=== PATIENT | female | born 1985 | race Caucasian/White ===

== ENCOUNTER → 2016-09-15 | Outpatient (CLI) | payer OTHER, MEDICAID ==
[~2016-09-15] MED LIST: LORTAB 5/500 501 TAB PO; TYLENOL W/CODEI1 TAB PO
[2016-09-15 11:44] LABS: HEMOGLOBIN 13.9 g/dL (12.2-16.2); LYMPH # 2.1 K/mm3 (0.7-4.5)
[2016-09-15 12:50] LABS: ABO BLOOD TYPE A; RH BLOOD TYPE POSITIVE
[2016-09-15 16:12] LABS: AMPHETAMINES/METAMPHETAMINES NEGATIVE ng/mL (<1000)
[2016-09-16 08:43] LABS: HIV Screen 4th Generation wRfx Non Reactive (Non Reactive); Rapid Plasma Reagin, Quant Non Reactive (NonRea<1:1)
[2016-09-16 09:38] LABS: HBsAg Screen Negative (Negative)
== END ==
LOC: LAB 11:07
PROVIDERS: Obstetrics & Gynecology
DX: Z36 Encounter for antenatal screening of mother (principal); Z04.8 Encounter for examination and observation for other specified reasons; Z34.80 Encounter for supervision of other normal pregnancy, unspecified trimester
CPT/HCPCS: G0432

== ENCOUNTER → 2016-12-31 | Outpatient (CLI) | payer OTHER, MEDICAID ==
[~2016-12-31] MED LIST changes: +METFORMIN HCL1000 MG PO
[2016-12-31 08:01] LABS: FASTING URINE GLUCOSE NEGATIVE
[2016-12-31 09:13] LABS: 1 HR URINE GLUCOSE 3+ mg/ml
[2016-12-31 10:14] LABS: 2 HR URINE GLUCOSE 2+ mg/ml
[2016-12-31 11:13] LABS: 3 HR URINE GLUCOSE 2+ mg/ml
== END ==
LOC: LAB 07:51
PROVIDERS: Obstetrics & Gynecology
DX: Z13.1 Encounter for screening for diabetes mellitus (principal)

== ENCOUNTER → 2017-02-17 | Outpatient (CLI) | payer OTHER, MEDICAID ==
[2017-02-17 11:42] LABS: BUN 6 mg/dL (7-18)
[2017-02-17 11:48] LABS: GFR (ESTIMATED) 187 ML/MIN (59-)
== END ==
LOC: LAB 10:44
PROVIDERS: Internal Medicine Adolescent Medicine
DX: E28.2 Polycystic ovarian syndrome (principal)

== ENCOUNTER 2017-03-10 09:51 | Outpatient (CLI) | payer OTHER, MEDICAID ==
[~2017-03-10] VITALS: Ht 152.4 cm; Wt 93.0 kg
[2017-03-10 10:05] VITALS: BP 125/76
[2017-03-10] MEDS ORDERED: LABETALOL 100M100 MG PO (10:08)
[2017-03-10] MEDS ORDERED: ZYRTEC10 M2 PO (10:09)
[2017-03-10 10:52] LABS: LYMPH # 1.8 K/mm3 (0.7-4.5); LYMPH % 17.1 % (10-50.0)
[2017-03-10 11:28] LABS: ABO BLOOD TYPE A; RH BLOOD TYPE POSITIVE
== END 2017-03-10 12:45 | disposition home or self-care (01) ==
LOC: OB 09:51 → OBOUT 09:51
PROVIDERS: Obstetrics & Gynecology
DX: O36.8930 Maternal care for other specified fetal problems, third trimester, not applicable or unspecified (principal); Z3A.36 36 weeks gestation of pregnancy

== ENCOUNTER 2017-03-18 14:52 | Outpatient (CLI) | payer OTHER, MEDICAID ==
[~2017-03-18] VITALS: Ht 151.1 cm; Wt 92.1 kg
[~2017-03-18 14:52] MED LIST changes: +LABETALOL 100M100 MG PO; +ZYRTEC10 M2 PO
[2017-03-18 15:25] VITALS: BP 134/75
[2017-03-18 15:55] LABS: URINE BILIRUBIN - DIPSTICK NEGATIVE (NEG); URINE BLOOD NEGATIVE (NEG)
== END 2017-03-18 16:10 | disposition home or self-care (01) ==
LOC: OBOUT 14:52 → OB 14:53 → OBOUT 16:10
PROVIDERS: Nurse Practitioner Obstetrics & Gynecology
DX: O60.03 Preterm labor without delivery, third trimester (principal); Z3A.37 37 weeks gestation of pregnancy

== ENCOUNTER → 2017-03-23 | Outpatient (CLI) | payer OTHER, MEDICAID ==
[2017-03-23 13:06] LABS: HEMOGLOBIN 11.6 g/dL (12.2-16.2); LYMPH # 2.2 K/mm3 (0.7-4.5); LYMPH % 17.2 % (10-50.0)
[2017-03-23 13:49] LABS: URINE BILIRUBIN - DIPSTICK NEGATIVE (NEG); URINE BLOOD NEGATIVE (NEG)
[2017-03-23 14:05] LABS: URINE SQUAMOUS CELLS 20-50 #/hpf (0-5)
[2017-03-23 14:54] LABS: BUN 5 mg/dL (7-18)
[2017-03-23 15:31] LABS: GFR (ESTIMATED) 187 ML/MIN (59-)
== END ==
LOC: LAB 12:45
PROVIDERS: Obstetrics & Gynecology
DX: Z30.2 Encounter for sterilization (principal); Z01.812 Encounter for preprocedural laboratory examination